=== PATIENT | female | born 1970 | race African-American/Black ===

== ENCOUNTER 2017-03-10 18:12 | Inpatient (IN) | payer MEDICAID ==
[~2017-03-10] VITALS: Ht 167.6 cm; Wt 61.7 kg
[~2017-03-10 18:12] MED LIST: BRIM15DR2 EACHEYE; CIPR-264 PO; CYCL2DRO4 OP; DORZ10DR9 EACHEYE; LEVO250T2 PO; NEO/5DRO3 EACHEYE; SULF1TAB47 PO
[2017-03-10] MEDS ORDERED: FAMOTIDINE 20MG/2ML VIAL IV STA (18:32)
[2017-03-10] MEDS ORDERED: PANTOPRAZOLE SODIUM 40 MG/VIAL IV STA (18:32)
[2017-03-10] MEDS ORDERED: SODIUM CHLORIDE 0.9% 1,000 ML IV ONE (18:32)
[2017-03-10] MEDS ORDERED: ONDANSETRON HCL 4MG/2ML VIAL IV STA (18:32)
[2017-03-10] MEDS ORDERED: LEVOFLOXACIN 750MG PREMIX 150 ML IV ONE (18:45)
[2017-03-10] MEDS ORDERED: VANCOMYCIN 1 G PREMIX 200 ML IV ONE (18:45)
[2017-03-10 19:21] LABS: EOSINOPHILS % 0.5 % (0.0-5.0); HEMATOCRIT. 31.7 % (36.0-48.0); HEMOGLOBIN. 10.8 g/dL (12.0-16.0); LYMPHOCYTES % 14.2 % (20.0-50.0); MEAN CORPUSCULAR VOLUME 82.5 fL (81.0-99.0); MEAN PLATELET VOLUME 8.2 fl (7.4-10.4); MONOCYTES % 7.2 % (2.0-8.0); NEUTROPHILS % 77.1 % (40.0-76.0); PLATELET 269 x1000/uL (130-400); RED BLOOD CELL COUNT 3.85 mill/uL (4.2-5.4); RED CELL DISTRIBUTION WIDTH 15.7 % (11.6-14.6)
[2017-03-10 19:27] LABS: CHLORIDE 106 mEq/L (98-107)
[2017-03-10 19:28] LABS: PROTHROMBIN TIME 10.8 sec (9.4-11.6)
[2017-03-10 19:30] LABS: CARBON DIOXIDE 22 mEq/L (21-32)
[2017-03-10 19:35] LABS: HCG SCREEN NEGATIVE
[2017-03-10 19:36] LABS: ETHANOL BLOOD < 10 mg/dL
[2017-03-10 19:38] LABS: TROPONIN I < 0.02 ng/mL (0.00-0.04)
[2017-03-10] MEDS ORDERED: KCL 20MEQ/100ML PREMIX 100 ML IV ONE (19:45)
[2017-03-10 21:47] LABS: CLARITY URINE TURBID (CLEAR); COLOR URINE YELLOW (YELLOW); KETONES URINE TRACE (NEGATIVE); LEUKOCYTE ESTERASE URINE 3+ (NEGATIVE); NITRITE URINE NEGATIVE (NEGATIVE); OCCULT BLOOD URINE 2+ (NEGATIVE); PH URINE 5.5 (4.5-8.0); PROTEIN URINE 1+ (NEGATIVE); SPECIFIC GRAVITY URINE 1.015 (1.005-1.030); UROBILINOGEN URINE 0.2 E.U./dL (0.2-1.0)
[2017-03-10] MEDS ORDERED: POTASSIUM CHLORIDE INJ 20 MEQ in SODIUM CHLORIDE 0.9% 100 ML IV NR (22:00)
[2017-03-10 22:03] LABS: *AMPHETAMINES SCREEN URINE NEGATIVE (NEGATIVE); *BARBITURATES SCREEN URINE NEGATIVE (NEGATIVE); *BENZODIAZEPINES SCREEN URINE NEGATIVE (NEGATIVE); *COCAINE SCREEN URINE NEGATIVE (NEGATIVE); CANNABINOID URINE SCREEN NEGATIVE (NEGATIVE); METHADONE URINE SCREEN NEGATIVE (NEGATIVE); OPIATES URINE SCREEN NEGATIVE (NEGATIVE); PHENCYCLIDINE URINE SCREEN NEGATIVE (NEGATIVE)
[2017-03-11 03:45] VITALS: BP 101/63
[2017-03-11] MEDS ORDERED: SIMV20TA6 PO (04:52)
[2017-03-11] MEDS ORDERED: FERR325T23 PO (04:52)
[2017-03-11] MEDS ORDERED: INSLIS SUBCUT (04:52)
[2017-03-11] MEDS: SODIUM CHL 0.45% + KCL 20MEQ/L 1,000 ML IV SCH ×2 (06:21→19:48)
[2017-03-11 08:00] VITALS: BP 119/73
[2017-03-11] MEDS ORDERED: CYCLOPENTOLATE HCL 2% OPHTH DROPS 2ML LEFTEYE SCH (09:15)
[2017-03-11] MEDS ORDERED: MAGNESIUM 2 G PREMIX 50 ML IV NR ×2 (11:30→20:00)
[2017-03-11 12:00] VITALS: BP 107/60
[2017-03-11] MEDS ORDERED: DEXTROSE 50% WATER 50ML SYRINGE IV PRN (14:00)
[2017-03-11] MEDS ORDERED: KCL 20MEQ/100ML PREMIX 100 ML IV ONE (15:00)
[2017-03-11] MEDS: MORPHINE SULFATE 2 MG/ML CPJ (NOT FOR IM USE) IV PRN ×2 (15:24→19:59)
[2017-03-11 16:00] VITALS: BP 99/58
[2017-03-11] MEDS ORDERED: POTASSIUM CHLORIDE INJ 20 MEQ in SODIUM CHLORIDE 0.9% 100 ML IV NR (16:30)
[2017-03-11] MEDS: BLOOD SUGAR DIAGNOSTIC STRIP TEST SCH ×2 (17:12→21:10)
[2017-03-11] MEDS: INSULIN LISPRO 100 UNITS/ML SUBCUT SCH ×2 (17:30→21:00)
[2017-03-11] MEDS ORDERED: NA PHOS,M-B/NA PHOS,DI-BA ENEMA 118ML PR NR (18:30)
[2017-03-11] MEDS: PANTOPRAZOLE SODIUM 40 MG/VIAL IV SCH (19:48)
[2017-03-11 20:00] VITALS: BP 106/63
[2017-03-11] MEDS ORDERED: DORZOLAM/TIMOLOL 2.23/0.68% OPHTH DROPS 10ML EACHEYE SCH (21:00)
[2017-03-11] MEDS: LEVOFLOXACIN 500MG PREMIX 100 ML IV SCH (21:27)
[2017-03-11] MEDS: ONDANSETRON HCL 4MG/2ML VIAL IV PRN (21:27)
[2017-03-12] VITALS: BP 109/60
[2017-03-12] MEDS: SODIUM CHL 0.45% + KCL 20MEQ/L 1,000 ML IV SCH ×2 (02:00→21:21)
[2017-03-12 04:00] VITALS: BP 123/68
[2017-03-12] MEDS: MORPHINE SULFATE 2 MG/ML CPJ (NOT FOR IM USE) IV PRN ×4 (04:52→20:03)
[2017-03-12] MEDS: ONDANSETRON HCL 4MG/2ML VIAL IV PRN (04:52)
[2017-03-12 07:14] LABS: BASOPHILS % 0.4 % (0.0-2.0); EOSINOPHILS % 1.7 % (0.0-5.0); HEMOGLOBIN. 8.7 g/dL (12.0-16.0); MEAN CORPUSCULAR HEMOGLOBIN 27.4 pg (28.0-32.0); MEAN CORPUSCULAR VOLUME 82.1 fL (81.0-99.0); MEAN PLATELET VOLUME 8.2 fl (7.4-10.4); MONOCYTES % 7.1 % (2.0-8.0); NEUTROPHILS % 77.8 % (40.0-76.0); PLATELET 209 x1000/uL (130-400); RED BLOOD CELL COUNT 3.17 mill/uL (4.2-5.4); RED CELL DISTRIBUTION WIDTH 15.9 % (11.6-14.6)
[2017-03-12] MEDS: INSULIN LISPRO 100 UNITS/ML SUBCUT SCH ×4 (07:32→20:09)
[2017-03-12] MEDS: BLOOD SUGAR DIAGNOSTIC STRIP TEST SCH ×4 (07:32→20:09)
[2017-03-12 07:40] LABS: AMYLASE 127 IU/L (25-115); CARBON DIOXIDE 23 mEq/L (21-32); CHLORIDE 109 mEq/L (98-107); PHOSPHORUS 3.8 mg/dL (2.5-4.9); TOTAL IRON BINDING CAPACITY 105 ug/dL (250-450)
[2017-03-12 08:00] VITALS: BP_SYST 143; BP_SYST 99; BP_DIAS 56; BP_DIAS 74
[2017-03-12] MEDS ORDERED: NEO/POLYMYX B SULF/DEXAMETH 0.1% OPHTH SUSP 5ML EACHEYE SCH (09:00)
[2017-03-12 09:04] LABS: FOLIC ACID (FOLATE) SERUM 17.4 ng/mL (>5.38)
[2017-03-12] MEDS: PANTOPRAZOLE SODIUM 40 MG/VIAL IV SCH (09:13)
[2017-03-12 12:00] VITALS: BP_SYST 118; BP_SYST 121; BP_DIAS 64; BP_DIAS 67
[2017-03-12 16:00] VITALS: BP_SYST 115; BP_SYST 164; BP_DIAS 71; BP_DIAS 74
[2017-03-12 20:00] VITALS: BP 135/78
[2017-03-12] MEDS: LEVOFLOXACIN 500MG PREMIX 100 ML IV SCH (20:03)
[2017-03-12] MEDS: POTASSIUM CHLORIDE 10MEQ TABLET SR PO SCH (21:20)
[2017-03-12] MEDS ORDERED: POTASSIUM CHLORIDE INJ 40 MEQ in DEXT 5% WATER 250 ML IV NR (22:30)
[2017-03-13] VITALS: BP 144/69
[2017-03-13] MEDS: MORPHINE SULFATE 2 MG/ML CPJ (NOT FOR IM USE) IV PRN ×2 (02:02→14:04)
[2017-03-13 04:00] VITALS: BP 109/72
[2017-03-13] MEDS: ONDANSETRON HCL 4MG/2ML VIAL IV PRN ×2 (04:25→23:34)
[2017-03-13 06:53] LABS: BASOPHILS % 0.3 % (0.0-2.0); EOSINOPHILS % 4.1 % (0.0-5.0); HEMATOCRIT. 26.9 % (36.0-48.0); HEMOGLOBIN. 8.9 g/dL (12.0-16.0); LYMPHOCYTES % 18.2 % (20.0-50.0); MEAN CORPUSCULAR HEMOGLOBIN 27.2 pg (28.0-32.0); MEAN CORPUSCULAR VOLUME 82.7 fL (81.0-99.0); MEAN PLATELET VOLUME 8.2 fl (7.4-10.4); NEUTROPHILS % 68.4 % (40.0-76.0); PLATELET 180 x1000/uL (130-400); RED BLOOD CELL COUNT 3.26 mill/uL (4.2-5.4)
[2017-03-13 07:13] LABS: CARBON DIOXIDE 22 mEq/L (21-32); CHLORIDE 110 mEq/L (98-107)
[2017-03-13] MEDS: BLOOD SUGAR DIAGNOSTIC STRIP TEST SCH ×4 (07:40→20:39)
[2017-03-13 08:00] VITALS: BP 120/73
[2017-03-13] MEDS: POTASSIUM CHLORIDE 10MEQ TABLET SR PO SCH ×2 (08:49→18:00)
[2017-03-13] MEDS: PANTOPRAZOLE SODIUM 40 MG/VIAL IV SCH (08:49)
[2017-03-13] MEDS: INSULIN LISPRO 100 UNITS/ML SUBCUT SCH ×4 (08:50→20:39)
[2017-03-13 12:00] VITALS: BP 131/80
[2017-03-13 16:00] VITALS: BP 126/70
[2017-03-13] MEDS: SODIUM CHL 0.45% + KCL 20MEQ/L 1,000 ML IV SCH (18:00)
[2017-03-13 20:00] VITALS: BP 128/51
[2017-03-13] MEDS: LEVOFLOXACIN 500MG PREMIX 100 ML IV SCH (20:40)
[2017-03-14] VITALS: BP 103/73
[2017-03-14] MEDS: MORPHINE SULFATE 2 MG/ML CPJ (NOT FOR IM USE) IV PRN ×2 (01:45→16:26)
[2017-03-14 04:00] VITALS: BP 141/78
[2017-03-14] MEDS: SODIUM CHL 0.45% + KCL 20MEQ/L 1,000 ML IV SCH ×3 (04:36→23:48)
[2017-03-14] MEDS: ONDANSETRON HCL 4MG/2ML VIAL IV PRN ×2 (05:45→20:40)
[2017-03-14] MEDS: BLOOD SUGAR DIAGNOSTIC STRIP TEST SCH ×4 (07:40→20:35)
[2017-03-14 08:00] VITALS: BP 139/83
[2017-03-14] MEDS: INSULIN LISPRO 100 UNITS/ML SUBCUT SCH ×4 (08:10→20:35)
[2017-03-14] MEDS: PANTOPRAZOLE SODIUM 40 MG/VIAL IV SCH (08:13)
[2017-03-14] MEDS: POTASSIUM CHLORIDE 10MEQ TABLET SR PO SCH ×2 (08:13→16:25)
[2017-03-14 12:00] VITALS: BP 126/71
[2017-03-14] MEDS: NITROFURANTOIN 100MG M/M CAPSULE PO SCH ×2 (13:55→20:40)
[2017-03-14 16:00] VITALS: BP 126/78
[2017-03-14 20:00] VITALS: BP 121/70
[2017-03-14] MEDS: LEVOFLOXACIN 500MG PREMIX 100 ML IV SCH (20:41)
[2017-03-15] VITALS: BP 118/69
[2017-03-15] MEDS: MORPHINE SULFATE 2 MG/ML CPJ (NOT FOR IM USE) IV PRN (01:13)
[2017-03-15 04:00] VITALS: BP 127/75
[2017-03-15] MEDS: BLOOD SUGAR DIAGNOSTIC STRIP TEST SCH ×4 (07:40→20:58)
[2017-03-15 08:00] VITALS: BP 137/84
[2017-03-15] MEDS: INSULIN LISPRO 100 UNITS/ML SUBCUT SCH ×4 (08:10→21:00)
[2017-03-15] MEDS: ONDANSETRON HCL 4MG/2ML VIAL IV PRN ×2 (08:58→21:07)
[2017-03-15] MEDS: PANTOPRAZOLE SODIUM 40 MG/VIAL IV SCH (08:59)
[2017-03-15] MEDS: NITROFURANTOIN 100MG M/M CAPSULE PO SCH ×2 (08:59→20:58)
[2017-03-15] MEDS: POTASSIUM CHLORIDE 10MEQ TABLET SR PO SCH ×2 (08:59→16:36)
[2017-03-15] MEDS: SODIUM CHL 0.45% + KCL 20MEQ/L 1,000 ML IV SCH ×2 (10:50→20:57)
[2017-03-15 12:00] VITALS: BP 153/87
[2017-03-15 16:00] VITALS: BP 140/78
[2017-03-15] MEDS: MEGESTROL ACETATE 400 MG/10 ML UDC PO SCH (16:00)
[2017-03-15 20:00] VITALS: BP 123/85
[2017-03-15] MEDS: LEVOFLOXACIN 500MG PREMIX 100 ML IV SCH (20:57)
[2017-03-15] MEDS: MIRTAZAPINE 15MG TABLET PO SCH (20:57)
[2017-03-16] VITALS: BP 139/90
[2017-03-16 04:00] VITALS: BP 124/70
[2017-03-16] MEDS: BLOOD SUGAR DIAGNOSTIC STRIP TEST SCH ×4 (05:45→21:50)
[2017-03-16] MEDS: INSULIN LISPRO 100 UNITS/ML SUBCUT SCH ×4 (07:25→21:00)
[2017-03-16] MEDS: SODIUM CHL 0.45% + KCL 20MEQ/L 1,000 ML IV SCH (07:41)
[2017-03-16 08:00] VITALS: BP 147/85
[2017-03-16] MEDS: MEGESTROL ACETATE 400 MG/10 ML UDC PO SCH (09:00)
[2017-03-16] MEDS: NITROFURANTOIN 100MG M/M CAPSULE PO SCH ×2 (09:00→21:50)
[2017-03-16] MEDS: PANTOPRAZOLE SODIUM 40 MG/VIAL IV SCH (09:00)
[2017-03-16] MEDS: POTASSIUM CHLORIDE 10MEQ TABLET SR PO SCH (09:00)
[2017-03-16 12:00] VITALS: BP 145/88
[2017-03-16] MEDS ORDERED: MEDICATION NOT ON FORMULARY EA PO SCH (13:30)
[2017-03-16 15:08] LABS: CARBON DIOXIDE 24 mEq/L (21-32); CHLORIDE 111 mEq/L (98-107)
[2017-03-16 15:23] LABS: PREALBUMIN 12.2 mg/dL (20.0-40.0)
[2017-03-16 16:00] VITALS: BP 99/54
[2017-03-16] MEDS ORDERED: DEXTROSE 50% WATER 50ML SYRINGE IV NR (16:00)
[2017-03-16] MEDS: DEXT 5%/0.45% NACL 1000ML 1,000 ML IV SCH (16:17)
[2017-03-16] MEDS ORDERED: INSULIN REGULAR (HUMULIN R) UD 100 UNITS/ML SYR IV NR (16:30)
[2017-03-16 20:00] VITALS: BP 122/73
[2017-03-16 20:37] LABS: CARBON DIOXIDE 20 mEq/L (21-32); CHLORIDE 113 mEq/L (98-107)
[2017-03-16] MEDS ORDERED: SODIUM POLYSTYRENE SULFONATE 15 G/60 ML BOT PO NR (21:45)
[2017-03-16] MEDS: ASCORBIC ACID 250 MG TABLET PO SCH (21:49)
[2017-03-16] MEDS: MIRTAZAPINE 15MG TABLET PO SCH (21:50)
[2017-03-16] MEDS: LEVOFLOXACIN 500MG PREMIX 100 ML IV SCH (21:50)
[2017-03-17] VITALS: BP 108/63
[2017-03-17 04:00] VITALS: BP 130/76
[2017-03-17] MEDS: DEXT 5%/0.45% NACL 1000ML 1,000 ML IV SCH ×2 (05:11→18:07)
[2017-03-17] MEDS: BLOOD SUGAR DIAGNOSTIC STRIP TEST SCH ×4 (06:42→20:16)
[2017-03-17 08:00] VITALS: BP 127/69
[2017-03-17] MEDS: DRONABINOL 2.5MG CAPSULE PO SCH (09:01)
[2017-03-17] MEDS: FOLIC ACID/VITAMIN B COMP W-C TABLET PO SCH (09:01)
[2017-03-17] MEDS: ASCORBIC ACID 250 MG TABLET PO SCH ×2 (09:01→20:15)
[2017-03-17] MEDS: NITROFURANTOIN 100MG M/M CAPSULE PO SCH ×2 (09:01→20:14)
[2017-03-17] MEDS: ZINC SULFATE 220 MG ( 50 ) CAPSULE PO SCH (09:01)
[2017-03-17] MEDS: PANTOPRAZOLE SODIUM 40 MG/VIAL IV SCH (09:01)
[2017-03-17] MEDS: INSULIN LISPRO 100 UNITS/ML SUBCUT SCH ×4 (09:03→20:15)
[2017-03-17 12:00] VITALS: BP 124/70
[2017-03-17] MEDS ORDERED: MORPHINE SULFATE 2 MG/ML CPJ (NOT FOR IM USE) IV NR (12:15)
[2017-03-17 16:00] VITALS: BP_SYST 112; BP_SYST 139; BP_DIAS 71; BP_DIAS 79
[2017-03-17 20:00] VITALS: BP 130/82
[2017-03-17] MEDS: LEVOFLOXACIN 500MG PREMIX 100 ML IV SCH (20:15)
[2017-03-17] MEDS: MIRTAZAPINE 15MG TABLET PO SCH (20:15)
[2017-03-18] VITALS (7 sets, daily range): BP systolic 95–126; BP diastolic 52–71
[2017-03-18 07:01] LABS: BASOPHILS % 0.9 % (0.0-2.0); EOSINOPHILS % 4.7 % (0.0-5.0); HEMATOCRIT. 23.2 % (36.0-48.0); HEMOGLOBIN. 7.7 g/dL (12.0-16.0); LYMPHOCYTES % 33.2 % (20.0-50.0); MEAN CORPUSCULAR HEMOGLOBIN 27.3 pg (28.0-32.0); MEAN CORPUSCULAR VOLUME 82.6 fL (81.0-99.0); MEAN PLATELET VOLUME 8.1 fl (7.4-10.4); MONOCYTES % 9.5 % (2.0-8.0); NEUTROPHILS % 51.7 % (40.0-76.0); PLATELET 181 x1000/uL (130-400); RED BLOOD CELL COUNT 2.81 mill/uL (4.2-5.4); RED CELL DISTRIBUTION WIDTH 15.7 % (11.6-14.6)
[2017-03-18] MEDS: BLOOD SUGAR DIAGNOSTIC STRIP TEST SCH ×4 (07:40→20:42)
[2017-03-18 08:08] LABS: CARBON DIOXIDE 21 mEq/L (21-32); CHLORIDE 113 mEq/L (98-107)
[2017-03-18] MEDS: FOLIC ACID/VITAMIN B COMP W-C TABLET PO SCH (08:32)
[2017-03-18] MEDS: DRONABINOL 2.5MG CAPSULE PO SCH (08:32)
[2017-03-18] MEDS: NITROFURANTOIN 100MG M/M CAPSULE PO SCH ×2 (08:32→20:41)
[2017-03-18] MEDS: ZINC SULFATE 220 MG ( 50 ) CAPSULE PO SCH (08:32)
[2017-03-18] MEDS: INSULIN LISPRO 100 UNITS/ML SUBCUT SCH ×4 (08:33→20:41)
[2017-03-18] MEDS: PANTOPRAZOLE SODIUM 40 MG/VIAL IV SCH (08:33)
[2017-03-18] MEDS: ASCORBIC ACID 250 MG TABLET PO SCH ×2 (12:51→20:41)
[2017-03-18] MEDS: DEXT 5%/0.45% NACL 1000ML 1,000 ML IV SCH (18:21)
[2017-03-18] MEDS: MIRTAZAPINE 15MG TABLET PO SCH (20:41)
[2017-03-18] MEDS: LEVOFLOXACIN 500MG PREMIX 100 ML IV SCH (20:41)
[2017-03-18] MEDS: HYDROCODONE/ACETAMINOPHEN 5/325MG TABLET PO PRN (20:57)
[2017-03-19] VITALS (12 sets, daily range): BP systolic 83–140; BP diastolic 55–85
[2017-03-19] MEDS: BLOOD SUGAR DIAGNOSTIC STRIP TEST SCH ×4 (07:40→22:22)
[2017-03-19 08:03] LABS: BASOPHILS % 0.8 % (0.0-2.0); EOSINOPHILS % 6.2 % (0.0-5.0); HEMATOCRIT 22.5 % (36.0-48.0); HEMATOCRIT. 22.5 % (36.0-48.0); HEMOGLOBIN 7.4 g/dL (12.0-16.0); HEMOGLOBIN. 7.4 g/dL (12.0-16.0); MEAN CORPUSCULAR HEMOGLOBIN 27.1 pg (28.0-32.0); MEAN CORPUSCULAR VOLUME 82.8 fL (81.0-99.0); MEAN PLATELET VOLUME 8.2 fl (7.4-10.4); MONOCYTES % 10.2 % (2.0-8.0); NEUTROPHILS % 53.8 % (40.0-76.0); PLATELET 138 x1000/uL (130-400); RED BLOOD CELL COUNT 2.72 mill/uL (4.2-5.4); RED CELL DISTRIBUTION WIDTH 15.4 % (11.6-14.6)
[2017-03-19 08:41] LABS: CHLORIDE 113 mEq/L (98-107)
[2017-03-19 09:10] LABS: CARBON DIOXIDE 20 mEq/L (21-32)
[2017-03-19] MEDS: PANTOPRAZOLE SODIUM 40 MG/VIAL IV SCH (09:34)
[2017-03-19] MEDS: INSULIN LISPRO 100 UNITS/ML SUBCUT SCH ×4 (09:34→22:27)
[2017-03-19] MEDS: NITROFURANTOIN 100MG M/M CAPSULE PO SCH ×2 (09:38→22:15)
[2017-03-19] MEDS: DRONABINOL 2.5MG CAPSULE PO SCH (09:38)
[2017-03-19] MEDS: ZINC SULFATE 220 MG ( 50 ) CAPSULE PO SCH (09:38)
[2017-03-19] MEDS: FOLIC ACID/VITAMIN B COMP W-C TABLET PO SCH (09:38)
[2017-03-19] MEDS: ASCORBIC ACID 250 MG TABLET PO SCH ×2 (09:38→22:15)
[2017-03-19] MEDS: MIRTAZAPINE 15MG TABLET PO SCH (22:15)
[2017-03-19] MEDS: HYDROCODONE/ACETAMINOPHEN 5/325MG TABLET PO PRN (23:23)
[2017-03-20] VITALS (7 sets, daily range): BP systolic 109–120; BP diastolic 65–78
[2017-03-20] MEDS: BLOOD SUGAR DIAGNOSTIC STRIP TEST SCH ×4 (06:57→21:23)
[2017-03-20 08:25] LABS: BASOPHILS % 0.7 % (0.0-2.0); EOSINOPHILS % 7.4 % (0.0-5.0); HEMATOCRIT. 27.3 % (36.0-48.0); HEMOGLOBIN. 9.1 g/dL (12.0-16.0); LYMPHOCYTES % 28.2 % (20.0-50.0); MEAN CORPUSCULAR HEMOGLOBIN 27.5 pg (28.0-32.0); MEAN CORPUSCULAR VOLUME 82.7 fL (81.0-99.0); MEAN PLATELET VOLUME 8.4 fl (7.4-10.4); MONOCYTES % 10.4 % (2.0-8.0); NEUTROPHILS % 53.3 % (40.0-76.0); PLATELET 125 x1000/uL (130-400); RED BLOOD CELL COUNT 3.29 mill/uL (4.2-5.4); RED CELL DISTRIBUTION WIDTH 15.7 % (11.6-14.6)
[2017-03-20 08:44] LABS: CARBON DIOXIDE 20 mEq/L (21-32); CHLORIDE 116 mEq/L (98-107)
[2017-03-20] MEDS: PANTOPRAZOLE SODIUM 40 MG/VIAL IV SCH (08:44)
[2017-03-20] MEDS: ASCORBIC ACID 250 MG TABLET PO SCH ×2 (08:44→22:41)
[2017-03-20] MEDS: INSULIN LISPRO 100 UNITS/ML SUBCUT SCH ×4 (08:44→21:00)
[2017-03-20] MEDS: NITROFURANTOIN 100MG M/M CAPSULE PO SCH ×2 (08:44→22:41)
[2017-03-20] MEDS: FOLIC ACID/VITAMIN B COMP W-C TABLET PO SCH (08:44)
[2017-03-20] MEDS: DRONABINOL 2.5MG CAPSULE PO SCH (08:45)
[2017-03-20] MEDS: ZINC SULFATE 220 MG ( 50 ) CAPSULE PO SCH (08:45)
[2017-03-20] MEDS: MIDODRINE HCL 2.5MG TABLET PO SCH (18:11)
[2017-03-20] MEDS: MIRTAZAPINE 15MG TABLET PO SCH (22:41)
[2017-03-20] MEDS: HYDROCODONE/ACETAMINOPHEN 5/325MG TABLET PO PRN (22:42)
[2017-03-21] VITALS (7 sets, daily range): BP systolic 96–118; BP diastolic 58–74
[2017-03-21] MEDS: BLOOD SUGAR DIAGNOSTIC STRIP TEST SCH ×4 (06:55→21:10)
[2017-03-21] MEDS: INSULIN LISPRO 100 UNITS/ML SUBCUT SCH ×4 (08:10→21:00)
[2017-03-21] MEDS: ZINC SULFATE 220 MG ( 50 ) CAPSULE PO SCH (09:05)
[2017-03-21] MEDS: DRONABINOL 2.5MG CAPSULE PO SCH (09:05)
[2017-03-21] MEDS: NITROFURANTOIN 100MG M/M CAPSULE PO SCH ×2 (09:05→21:10)
[2017-03-21] MEDS: MIDODRINE HCL 2.5MG TABLET PO SCH ×3 (09:05→18:05)
[2017-03-21] MEDS: FOLIC ACID/VITAMIN B COMP W-C TABLET PO SCH (09:05)
[2017-03-21] MEDS: ASCORBIC ACID 250 MG TABLET PO SCH ×2 (09:08→21:10)
[2017-03-21] MEDS: PANTOPRAZOLE SODIUM 40 MG/VIAL IV SCH (09:50)
[2017-03-21] MEDS: MIRTAZAPINE 15MG TABLET PO SCH (21:10)
[2017-03-22] VITALS (7 sets, daily range): BP systolic 92–117; BP diastolic 52–70
[2017-03-22] MEDS: BLOOD SUGAR DIAGNOSTIC STRIP TEST SCH ×4 (07:40→21:00)
[2017-03-22] MEDS: INSULIN LISPRO 100 UNITS/ML SUBCUT SCH ×4 (08:10→21:00)
[2017-03-22] MEDS: FOLIC ACID/VITAMIN B COMP W-C TABLET PO SCH (09:07)
[2017-03-22] MEDS: ZINC SULFATE 220 MG ( 50 ) CAPSULE PO SCH (09:07)
[2017-03-22] MEDS: PANTOPRAZOLE SODIUM 40 MG/VIAL IV SCH (09:07)
[2017-03-22] MEDS: DRONABINOL 2.5MG CAPSULE PO SCH (09:07)
[2017-03-22] MEDS: MIDODRINE HCL 2.5MG TABLET PO SCH ×3 (09:09→18:07)
[2017-03-22] MEDS: ASCORBIC ACID 250 MG TABLET PO SCH ×2 (09:18→20:59)
[2017-03-22] MEDS: MIRTAZAPINE 15MG TABLET PO SCH (20:59)
[2017-03-23 04:00] VITALS: BP 108/62
[2017-03-23] MEDS: BLOOD SUGAR DIAGNOSTIC STRIP TEST SCH ×4 (07:40→20:49)
[2017-03-23 08:00] VITALS: BP 105/61
[2017-03-23] MEDS: INSULIN LISPRO 100 UNITS/ML SUBCUT SCH ×4 (08:10→20:49)
[2017-03-23] MEDS ORDERED: LORAZEPAM 2MG/ML CPJ IV PRN (08:30)
[2017-03-23] MEDS: PANTOPRAZOLE SODIUM 40 MG/VIAL IV SCH (09:00)
[2017-03-23] MEDS: FOLIC ACID/VITAMIN B COMP W-C TABLET PO SCH (09:52)
[2017-03-23] MEDS: ASCORBIC ACID 250 MG TABLET PO SCH ×2 (09:52→20:49)
[2017-03-23] MEDS: DRONABINOL 2.5MG CAPSULE PO SCH (09:52)
[2017-03-23] MEDS: ZINC SULFATE 220 MG ( 50 ) CAPSULE PO SCH (09:52)
[2017-03-23] MEDS: MIDODRINE HCL 2.5MG TABLET PO SCH ×3 (09:53→17:00)
[2017-03-23 12:00] VITALS: BP 112/69
[2017-03-23 12:03] LABS: AMMONIA 25 uMol/L (<32)
[2017-03-23 12:05] LABS: CARBON DIOXIDE 21 mEq/L (21-32); CHLORIDE 118 mEq/L (98-107)
[2017-03-23 12:31] LABS: EOSINOPHILS % 1.8 % (0.0-5.0); HEMATOCRIT. 26.8 % (36.0-48.0); HEMOGLOBIN. 8.8 g/dL (12.0-16.0); LYMPHOCYTES % 25.8 % (20.0-50.0); MEAN CORPUSCULAR HEMOGLOBIN 27.4 pg (28.0-32.0); MEAN CORPUSCULAR VOLUME 83.3 fL (81.0-99.0); MONOCYTES % 9.5 % (2.0-8.0); NEUTROPHILS % 61.9 % (40.0-76.0); PLATELET 121 x1000/uL (130-400); RED BLOOD CELL COUNT 3.21 mill/uL (4.2-5.4); RED CELL DISTRIBUTION WIDTH 16.2 % (11.6-14.6)
[2017-03-23 16:00] VITALS: BP 104/54
[2017-03-23 16:45] LABS: PREALBUMIN 11.5 mg/dL (20.0-40.0)
[2017-03-23 20:00] VITALS: BP 93/43
[2017-03-23] MEDS: MIRTAZAPINE 15MG TABLET PO SCH (20:49)
[2017-03-24] VITALS: BP 108/75
[2017-03-24 04:00] VITALS: BP 107/65
[2017-03-24] MEDS: INSULIN LISPRO 100 UNITS/ML SUBCUT SCH ×4 (06:32→22:25)
[2017-03-24] MEDS: BLOOD SUGAR DIAGNOSTIC STRIP TEST SCH ×4 (06:32→21:53)
[2017-03-24 08:00] VITALS: BP_SYST 101; BP_SYST 99; BP_DIAS 49; BP_DIAS 69
[2017-03-24] MEDS: ASCORBIC ACID 250 MG TABLET PO SCH ×2 (08:39→22:24)
[2017-03-24] MEDS: ZINC SULFATE 220 MG ( 50 ) CAPSULE PO SCH (08:39)
[2017-03-24] MEDS: FOLIC ACID/VITAMIN B COMP W-C TABLET PO SCH (08:39)
[2017-03-24] MEDS: MIDODRINE HCL 2.5MG TABLET PO SCH ×3 (08:39→17:00)
[2017-03-24] MEDS: PANTOPRAZOLE SODIUM 40 MG/VIAL IV SCH (09:40)
[2017-03-24] MEDS ORDERED: PHENYTOIN SODIUM 1,000 MG in SODIUM CHLORIDE 0.9% 100 ML IV SCH (13:00)
[2017-03-24 15:28] LABS: AMMONIA 28 uMol/L (<32)
[2017-03-24 15:40] LABS: T4 FREE 1.06 ng/dL (0.76-1.46)
[2017-03-24 16:00] VITALS: BP 100/55
[2017-03-24 16:01] LABS: FOLIC ACID (FOLATE) SERUM 17.1 ng/mL (>5.38)
[2017-03-24 16:09] LABS: BG BASE EXCESS -4.4 mmol/L (-2.0-2.0); BG CARBOXYHEMOGLOBIN 0.3 % (0.5-1.5); BG DEOXYHEMOGLOBIN 2.2 % (0.0-5.0); BG FRACTION INSPIRED OXYGEN 21; BG HCO3 ACT 19.8 mmol/L (22.0-26.0); BG METHEMOGLOBIN 0.2 % (0.0-1.5); BG OXYGEN SATURATION 97.8 % (92.0-98.5); BG OXYHEMOGLOBIN 97.3 % (94.0-97.0); BG PCO2 32.3 mmHg (35.0-45.0); BG PH 7.405 (7.350-7.450); BG PO2 112.9 mmHg (75.0-100.0); BG SAMPLE SITE LEFT BRACHIAL; BG VENT MODE ROOM AIR
[2017-03-24] MEDS: LINEZOLID 600 MG PREMIX 300 ML IV SCH (18:29)
[2017-03-24 20:00] VITALS: BP 121/52
[2017-03-24] MEDS: MIRTAZAPINE 15MG TABLET PO SCH (22:24)
[2017-03-25] VITALS (7 sets, daily range): BP systolic 85–128; BP diastolic 39–72
[2017-03-25 04:19] LABS: OVA & PARASITE EXAM Final report (.)
[2017-03-25 04:49] LABS: CLARITY URINE TURBID (CLEAR); COLOR URINE YELLOW (YELLOW); KETONES URINE TRACE (NEGATIVE); LEUKOCYTE ESTERASE URINE 3+ (NEGATIVE); NITRITE URINE NEGATIVE (NEGATIVE); OCCULT BLOOD URINE 3+ (NEGATIVE); PROTEIN URINE 2+ (NEGATIVE); SPECIFIC GRAVITY URINE 1.019 (1.005-1.030); UROBILINOGEN URINE 0.2 E.U./dL (0.2-1.0)
[2017-03-25] MEDS: LINEZOLID 600 MG PREMIX 300 ML IV SCH (05:41)
[2017-03-25] MEDS: BLOOD SUGAR DIAGNOSTIC STRIP TEST SCH ×4 (05:41→21:16)
[2017-03-25] MEDS: INSULIN LISPRO 100 UNITS/ML SUBCUT SCH ×4 (08:10→21:00)
[2017-03-25] MEDS: ZINC SULFATE 220 MG ( 50 ) CAPSULE PO SCH (08:44)
[2017-03-25] MEDS: PANTOPRAZOLE SODIUM 40 MG/VIAL IV SCH (08:44)
[2017-03-25] MEDS: DEXT 5%/0.45% NACL 1000ML 1,000 ML IV SCH ×2 (08:44→18:19)
[2017-03-25] MEDS: MIDODRINE HCL 2.5MG TABLET PO SCH ×3 (08:45→17:00)
[2017-03-25] MEDS: FOLIC ACID/VITAMIN B COMP W-C TABLET PO SCH (08:45)
[2017-03-25] MEDS: ASCORBIC ACID 250 MG TABLET PO SCH ×2 (08:55→21:07)
[2017-03-25] MEDS ORDERED: PHENYTOIN SODIUM EXTENDED 100MG CAPSULE PO SCH (21:00)
[2017-03-25] MEDS: MIRTAZAPINE 15MG TABLET PO SCH (21:07)
[2017-03-26] VITALS: BP 121/60
[2017-03-26 04:00] VITALS: BP 124/62
[2017-03-26] MEDS: DEXT 5%/0.45% NACL 1000ML 1,000 ML IV SCH (04:36)
[2017-03-26] MEDS: BLOOD SUGAR DIAGNOSTIC STRIP TEST SCH ×2 (06:49→13:29)
[2017-03-26 08:00] VITALS: BP 129/72
[2017-03-26] MEDS: PANTOPRAZOLE SODIUM 40 MG/VIAL IV SCH (09:14)
[2017-03-26] MEDS: ASCORBIC ACID 250 MG TABLET PO SCH (09:14)
[2017-03-26] MEDS: FOLIC ACID/VITAMIN B COMP W-C TABLET PO SCH (09:15)
[2017-03-26] MEDS: MIDODRINE HCL 2.5MG TABLET PO SCH ×2 (09:15→13:00)
[2017-03-26] MEDS: ZINC SULFATE 220 MG ( 50 ) CAPSULE PO SCH (09:15)
[2017-03-26 12:00] VITALS: BP 131/68
[2017-03-26 12:33] LABS: CHLORIDE 117 mEq/L (98-107)
[2017-03-26 12:41] LABS: CARBON DIOXIDE 21 mEq/L (21-32)
== END 2017-03-26 16:00 | DRG 252 ==
LOC: ER 18:45 → EDBEDREQ 22:15 → 7WST 22:42 → EDBEDREQ 22:44 → ENRESERV 23:27
PROVIDERS: ADMIT Internal Medicine; ATTEND Internal Medicine
PROC: 0DP6XUZ Removal of Feeding Device from Stomach, External Approach (ICD-10-PCS; principal; 2017-03-11)
PROC: 30233N1 Transfusion of Nonautologous Red Blood Cells into Peripheral Vein, Percutaneous Approach (ICD-10-PCS; 2017-03-19)
DX: K94.23 Gastrostomy malfunction (principal); N17.0 Acute kidney failure with tubular necrosis; E43 Unspecified severe protein-calorie malnutrition; G92 Toxic encephalopathy; I13.10 Hypertensive heart and chronic kidney disease without heart failure, with stage 1 through stage 4 chronic kidney disease, or unspecified chronic kidney disease; E11.22 Type 2 diabetes mellitus with diabetic chronic kidney disease; E11.40 Type 2 diabetes mellitus with diabetic neuropathy, unspecified; K80.20 Calculus of gallbladder without cholecystitis without obstruction; D64.9 Anemia, unspecified; E87.6 Hypokalemia; N39.0 Urinary tract infection, site not specified; B96.1 Klebsiella pneumoniae [K. pneumoniae] as the cause of diseases classified elsewhere; H70.93 Unspecified mastoiditis, bilateral; Y83.8 Other surgical procedures as the cause of abnormal reaction of the patient, or of later complication, without mention of misadventure at the time of the procedure; N18.3 Chronic kidney disease, stage 3 (moderate); I95.1 Orthostatic hypotension; Z16.21 Resistance to vancomycin; Z83.3 Family history of diabetes mellitus; Z89.431 Acquired absence of right foot; Z88.0 Allergy status to penicillin; Z79.899 Other long term (current) drug therapy; Z79.4 Long term (current) use of insulin; Y92.89 Other specified places as the place of occurrence of the external cause; Z68.22 Body mass index [BMI] 22.0-22.9, adult
CPT/HCPCS: 36415; 36600; 70450; 70551; 71010; 74000; 74176; 80048; 80053; 80076; 80185; 80305; 81001; 82040; 82140; 82150; 82248; 82270; 82375; 82607; 82728; 82746; 82805; 82962; 83036; 83540; 83550; 83605; 83690; 83735; 84100; 84132; 84134; 84439; 84443; 84481; 84484; 84703; 85014; 85018; 85025; 85610; 86850; 86900; 86920; 87015; 87040; 87045; 87070; 87077; 87086; 87177; 87186; 87205; 87209; 87427; 87449; 87493; 92610; 93005; 96365; 96367; 96375; 97162; 97166; 97530; 99291; A6261; C1893; C9113; G0482; J1165; J1815; J1956; J2020; J2060; J2270; J2405; J3370; J3475; J3480; J3490; J7030; J7040; J7050; J7060; P9016; Q0167; A4315